=== PATIENT | female | born 1940 | race Caucasian/White ===

== ENCOUNTER 2023-12-28 08:04 | Outpatient (CLI) | payer MEDICARE | END 2023-12-28 08:05 | disposition home or self-care (01) | LOC: CSHCT 08:04 | PROVIDERS: ATTEND Nurse Practitioner Family | DX: C54.1 Malignant neoplasm of endometrium (principal); K59.00 Constipation, unspecified; R10.84 Generalized abdominal pain; R91.8 Other nonspecific abnormal finding of lung field | CPT/HCPCS: 71260; 74177; 82565 ==